=== PATIENT | male | born 1970 | race Caucasian/White ===

== ENCOUNTER 2019-02-16 08:31 | Emergency (ER) | payer OTHER ==
[~2019-02-16] VITALS: Ht 182.9 cm; Wt 81.7 kg
[2019-02-16 09:05] LABS: ABSOLUTE LYMPHOCYTES 1.3 thou/uL (0.8-5.3); ABSOLUTE MONOCYTES 0.6 thou/uL (0.0-1.2); ABSOLUTE NEUTROPHILS 5.5 thou/uL (1.6-8.1); BASOPHILS 0.4 %; EOSINOPHILS 0.7 %; HEMATOCRIT 42.5 % (42.0-52.0); LYMPHOCYTES 17.1 %; MCH 36.5 pg (26.0-34.0); MCHC 35.2 g/dL (28.0-37.0); MCV 103.7 fL (80.0-100.0); MONOCYTES 7.9 %; MPV 7.5 fl. (7.2-11.1); NUCLEATED RBCS 0 /100WBC; PLATELET COUNT* 201 thou/uL (150-400); POLYS 73.9 %; WBC 7.5 thou/uL (4.0-11.0)
[2019-02-16 09:26] LABS: CREATININE 0.7 mg/dL (0.6-1.3); POTASSIUM 3.9 mmol/L (3.5-5.1)
[2019-02-16 09:30] LABS: TOTAL BILIRUBIN 0.2 mg/dL (<0.1-1.0); TOTAL PROTEIN 7.5 g/dL (6.4-8.2)
[2019-02-16 09:49] VITALS: BP 149/89
--- NOTE | 2019-02-16 14:29 | EKG ---
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
== END 2019-02-16 09:51 | disposition home or self-care (01) ==
LOC: M.ERS 08:31
PROVIDERS: Family Medicine
DX: F41.0 Panic disorder [episodic paroxysmal anxiety] (principal); F10.129 Alcohol abuse with intoxication, unspecified; Y90.6 Blood alcohol level of 120-199 mg/100 ml; R42 Dizziness and giddiness; F17.210 Nicotine dependence, cigarettes, uncomplicated